=== PATIENT | female | born 1995 | race Caucasian/White ===

== ENCOUNTER 2019-08-11 07:46 | Day surgery (SDC) | payer OTHER ==
[~2019-08-11] VITALS: Ht 162.6 cm; Wt 86.5 kg
[~2019-08-11 07:46] MED LIST: IBUP1TAB7 PO; KETOROLAC 60 MG/2 ML VIAL (J1885) As Ordered ONE; LR 1,000 ML IV ONE; LevoFLOXacin IV 500 MG in IV 1 EA IV ONE; PROPOFOL 200 MG/20 ML VIAL As Ordered ONE
[2019-08-11] MEDS ORDERED: LIDOCAINE 2% INJ 100 MG/5 ML SDV (FOR ANES.) As Ordered ONE (08:23)
[2019-08-11] MEDS ORDERED: ROCURONIUM BROMIDE 50 MG/5 ML VIAL As Ordered ONE ×2 (08:23→08:46)
[2019-08-11] MEDS ORDERED: fentaNYL 100 MCG/2 ML INJECTION (J3010) As Ordered ONE ×2 (08:23→08:50)
[2019-08-11] MEDS ORDERED: PROPOFOL 200 MG/20 ML VIAL As Ordered ONE (08:23)
[2019-08-11] MEDS ORDERED: MIDAZOLAM INJ 2 MG/2 ML VIAL (J2250) As Ordered ONE (08:23)
[2019-08-11] MEDS ORDERED: dexameTHASONE 4 MG/ML 1ML VIAL (J1100) As Ordered ONE (08:24)
[2019-08-11] MEDS ORDERED: ONDANSETRON 4MG/2ML VIAL (J2405) As Ordered ONE (08:24)
[2019-08-11 08:30] LABS: URINE PREG TEST NEGATIVE (NEGATIVE)
[2019-08-11] MEDS ORDERED: SUGAMMADEX SODIUM 500 MG/5 ML VIAL (BRIDION) As Ordered ONE ×2 (09:14→11:34)
[2019-08-11] MEDS ORDERED: ACETAMINOPHEN 1000MG 100ML IV BTL (OFIRMEV) (J0131 PER 10MG) As Ordered ONE (09:15)
[2019-08-11] MEDS ORDERED: LIDOCAINE 1% SDV INJ 30 ML VIAL As Ordered ONE (09:39)
[2019-08-11] MEDS ORDERED: BUPIVACAINE HCL 0.25% 30 ML VIAL As Ordered ONE ×2 (09:39→10:34)
[2019-08-11] MEDS ORDERED: BUPIVACAINE LIPOSOME/PF 1.3% 20ML VIAL (13.3MG/ML)(EXPAREL)(C9290 PER1MG) As Ordered ONE (10:35)
[2019-08-11] MEDS ORDERED: NORC1TAB7 PO (12:06)
--- NOTE | 2019-08-11 12:10 | ROOPDOC ---
[facility] Report Of Operation Report of Operation DATE OF PROCEDURE: 08/11/19 PREPROCEDURE DIAGNOSES: Pilonidal cyst. POSTPROCEDURE DIAGNOSES: Pilonida Cyst. PROCEDURE: Excision of Pilonidal Cyst with rotation flap closure (Brian Cleft Lip). SURGEON: Juanjose Da Silva MD ESTHETICIAN [employer] ARTIST: ANESTHESIA: General Anesthesia. ESTIMATED BLOOD LOSS: Approximately 20 mL. COMPLICATIONS: none. REMARKS: . PROCEDURE NOTE: well formed epithealized sinus tract to the midline at about the coccygeal level 5 cms from the lateral sinus opening. DESCRIPTION OF PROCEDURE: . JUANJOSE DA SILVA MD Aug 11, 2019 12:10
[2019-08-11] MEDS ORDERED: LR 1,000 ML IV SCH (12:30)
[2019-08-11] MEDS ORDERED: ONDANSETRON 4MG/2ML VIAL (J2405) IV PRN ×2 (12:30)
[2019-08-11] MEDS ORDERED: fentaNYL 100 MCG/2 ML INJECTION (J3010) IV PRN (12:30)
[2019-08-11] MEDS ORDERED: NORCO, ANEXSIA 5/325MG TABLET (HYDROcodone/ACETAMINOPHEN) PO PRN ×2 (12:30)
[2019-08-11] MEDS ORDERED: KETOROLAC 30 MG/ML VIAL (J1885) IV PRN (12:30)
[2019-08-11] MEDS ORDERED: METOCLOPRAMIDE INJ 10MG/2ML VIAL (J2765) IV PRN (12:30)
[2019-08-11] MEDS ORDERED: oxyCODONE 5MG TAB PO PRN (12:30)
[2019-08-11 14:00] VITALS: BP 118/70
== END 2019-08-11 14:00 | disposition home or self-care (01) ==
LOC: M SDC 07:46
PROVIDERS: ATTEND Surgery
DX: L05.91 Pilonidal cyst without abscess (principal); J45.909 Unspecified asthma, uncomplicated; Z88.0 Allergy status to penicillin
CPT/HCPCS: 11772; 14000; 84703; 88304; C9290; J0131; J1100; J1885; J1956; J2250; J2405; J3010